=== PATIENT | male | born 2000 | race African-American/Black ===

== ENCOUNTER 2025-02-11 20:52 | Emergency (ER) | payer OTHER ==
[~2025-02-11] VITALS: Ht 177.8 cm; Wt 80.6 kg
[2025-02-11 22:22] VITALS: TEMP 98.8
[2025-02-11] MEDS: KETOROLAC 30 MG/ML 1 ML VIAL IV ONE (22:48)
[2025-02-11] MEDS ORDERED: IBUP600T42 PO (23:53)
[2025-02-12 01:37] VITALS: BP 108/78; O2SAT 96
== END 2025-02-12 01:53 | disposition home or self-care (01) ==
LOC: EDBD 20:52 → M ED 20:52
DX: S43.005A Unspecified dislocation of left shoulder joint, initial encounter (principal); X58.XXXA Exposure to other specified factors, initial encounter; Z79.1 Long term (current) use of non-steroidal anti-inflammatories (NSAID); Y92.89 Other specified places as the place of occurrence of the external cause; Y93.89 Activity, other specified; Y99.1 Military activity
CPT/HCPCS: 73030; 73200; 96374; 99284; J1885